=== PATIENT | female | born 1965 | race Caucasian/White ===

== ENCOUNTER → 2017-04-19 | Outpatient (CLI) | payer OTHER ==
[~2017-04-19] MED LIST: MTR/400 PO; MULT-506 PO; OPTIRAY 320 IV PRN; POLY99.02 OP
--- NOTE | 2017-04-19 12:38 | DIAGNOSTIC IMAGING REPORT ---
ABD/PELVIS IV AND ORAL CONT CLINICAL HISTORY: 52 years-old Female presenting with N95.0 Postmenopausal [id number] Vaginal [id number] Vaginal, remote history of hysterectomy. TECHNIQUE: Multidetector CT of the abdomen and pelvis was performed after the administration of oral and intravenous contrast. IV contrast: 93 mL of Optiray 320. A dose lowering technique was used consistent with the principles of ALARA (as low as reasonably achievable). COMPARISON: None. CT DOSE (mGy.cm): The estimated cumulative dose is 620.11 mGycm. FINDINGS: Roof [employer] topogram: Unremarkable. Lung bases: Solid 4 mm nodule in the right middle lobe (series 3 image 19). Minimal dependent atelectasis. Normal heart size. No pericardial or pleural effusion. Liver: Normal morphology. No liver lesion. Patent hepatic vasculature. Biliary: No intrahepatic or extrahepatic biliary ductal dilatation. Normal gallbladder. Pancreas: Normal. Spleen: Normal. Adrenal glands: Normal. Kidneys and ureters: Subcentimeter well-defined hypodensity in the left kidney likely simple cyst. Smaller similar lesion in the right kidney. No hydronephrosis. No nephrolithiasis. Ureters normal. Bladder: Normal. Pelvic organs: Uterus surgically absent. Expected postsurgical appearance of the vagina and vaginal cuff. No adnexal masses. Bowel: Normal. No bowel obstruction. Peritoneal cavity: No free fluid or intraperitoneal gas. Lymph nodes: No enlarged lymph nodes in the abdomen or pelvis. Vasculature: Aorta normal in caliber. The IVC is flattened suggesting a hypovolemic state. Abdominal wall: Normal. Musculoskeletal: Mild osteopenia. IMPRESSION: 1. Expected post surgical appearance of the vagina and vaginal cuff status post hysterectomy. If there is continuing clinical concern for a vaginal abnormality, MR of the pelvis with intravenous contrast and endovaginal gel could be obtained. 2. No acute intra-abdominal pathology. 3. Solid 4 mm right middle lobe pulmonary nodule. Follow-up per [employer] Society 2017 recommendations below. Please refer to below summary of Fleischner Society 2017 recommendations for follow-up of incidental CT nodules (Nabila Chaudhari et al. Guidelines for management of incidental pulmonary nodules detected on CT images: From the Fleischner Society 2017. Radiology 2017; 284: 228-243.) SOLID NODULES Single nodule; size < 6 mm * Low risk patients: No routine follow-up * High risk patients: Optional CT at 12 months Single nodule; size 6-8 mm * Low risk patients: CT at 6-12 months, then consider CT at 18-24 months * High risk patients: CT at 6-12 months, then at 18-24 months Single nodule; size > 8 mm * Either low or high risk patients: Considered CT at 3 months, PET/CT, or tissue sampling Multiple nodules; size < 6 mm * Low risk patients: No routine follow up * High risk patients: Optional CT at 12 months Multiple nodules; size 6-8 mm * Low risk patients: CT at 3-6 months, then consider CT at 18-24 months * High risk patients: CT at 3-6 months, then at 18-24 months Multiple nodules; size > 8 mm * Low risk patients: CT at 3-6 months, then consider at 18-24 months * High risk patients: CT at 3-6 months, then at 18-24 months Note: These guidelines apply to incidental nodules. These guidelines do not apply to patients younger than 35 years, immunocompromised patients, or patients with cancer. * Low risk patients: Minimal or absent history of smoking and/or other known risk factors * High risk patients: History of smoking, exposure to other carcinogens, emphysema, fibrosis, upper lobe location, family history of lung cancer, etc. * If a nodule up to 8 mm is partly solid or is ground glass, further follow-up is required after 24 months to exclude possible slow growing adenocarcinoma. SUBSOLID NODULES Single ground-glass nodule * Nodule size < 6 mm: No routine follow-up * Nodule size > or = 6 mm: CT at 6-12 months to confirm persistence, then CT every 2 years until 5 years Single part-solid nodule * Nodule size < 6 mm: No routine follow-up * Nodules size > or = 6 mm: CT at 3-6 months to confirm persistence. If unchanged and solid component remains < 6 mm, annual CT should be performed for 5 years Multiple nodules * Nodule size < 6 mm: CT at 3-6 months. If stable, consider CT at 2 and 4 years. * Nodules size > or = 6 mm: CT at 3-6 months. Subsequent management based on the most suspicious nodule(s) Electronically signed by: Isrrael Leung M.D. 04/19/2017 12:36 PM Dictated Date/Time: 04/19/2017 12:29 PM
== END | disposition home or self-care (01) ==
LOC: C.CTS 10:04
PROVIDERS: ATTEND Obstetrics & Gynecology
DX: N89.8 Other specified noninflammatory disorders of vagina (principal); N95.0 Postmenopausal bleeding

== ENCOUNTER → 2017-07-06 | Outpatient (CLI) | payer OTHER ==
[~2017-07-06] MED LIST changes: +GADAVIST IV PRN; -OPTIRAY 320 IV PRN
--- NOTE | 2017-07-06 15:24 | DIAGNOSTIC IMAGING REPORT ---
MRI OF THE PELVIS COMBO CLINICAL HISTORY: Urge/stress incontinence. Clinical concern for urethral cyst. COMPARISON STUDY: Pelvic CT dated 04/19/2017. TECHNIQUE: MRI of the pelvis is performed utilizing various T1 and T2-weighted sequences in the axial, sagittal, and coronal planes. Contrast-enhanced sequences were acquired following the IV administration of 7 cc of Gadavist. The examination is modestly degraded by motion artifact. FINDINGS: The bladder is normal in appearance. There is no MRI evidence of urethral cyst or diverticulum as clinically queried. The uterus is surgically absent. The left ovary is atrophic as seen on axial T2 fat-sat image #15. This measures 2.6 x 0.9 cm. The right ovary is not identified. No enhancing pelvic mass is identified. No free fluid is seen in the pelvis. There is no pelvic sidewall or inguinal lymphadenopathy. The iliac vessels are widely patent. The visualized loops of small bowel and colon are normal in caliber. No destructive bony lesion is identified. There is mild marrow edema seen involving both sacroiliac joints suggesting sacroiliitis. The pelvic musculature is normal and symmetric. IMPRESSION: 1. There is no evidence of urethral cyst or diverticulum as clinically queried. 2. The uterus is surgically absent. The right ovary was not identified. 3. No enhancing mass lesion is identified in the pelvis. 4. Findings are consistent with mild sacroiliitis. Electronically signed by: Reese Love M.D. 07/06/2017 3:29 PM Dictated Date/Time: 07/06/2017 2:50 PM
== END | disposition home or self-care (01) ==
LOC: C.MRI 13:40
PROVIDERS: ATTEND Urology
DX: N36.8 Other specified disorders of urethra (principal); N39.46 Mixed incontinence; Z90.710 Acquired absence of both cervix and uterus